=== PATIENT | male | born 1995 | race Caucasian/White ===

== ENCOUNTER 2024-09-09 20:57 | Emergency (ER) | payer SELFPAY ==
[2024-09-09 21:11] VITALS: BP 132/90; PULSE 97; RESP 17; TEMP 37.2; O2SAT 96; BMI 30.9
--- NOTE | 2024-09-09 21:45 | HMH.EDGENADL ---
Discharge Plan Disposition Patient Disposition: Home, Self-Care Prescriptions Prescriptions: No Action No Known Home Medications Activity Restrictions/Add. Instructions Additional Instructions/Restrictions: Please apply the topical eyedrops 1 to 2 drops per eye every 4-6 hours over the next week. As discussed you should have complete resolution of your symptoms in the next 24 to 48 hours. 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 Clinical Impressions Clinical Impression: Welders' keratitis of both eyes Print Language Print Language: Palauan Discharge ED Provider: Zan Molina General Adult HPI General Chief complaint: PAIN Stated complaint: Flash burn both eyes Time Seen by Provider: 09/09/24 21:22 Mode of Arrival: Ambulatory Source of Information: Patient Description of Symptoms (Recalled from ER Triage Doc. by RN): He states he has flashburn of his eyes from welding that occurred this morning at 1000. He states his vision is foggy. Rates pain 10/10. Denies flushing his eyes. 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 States that he has significant pain in bilateral eyes. Has had this in the past. But states this is worse than normal. Vision has been normal but may be a little bit blurry. Related Data Home Medications ?Medication ?Instructions ?Recorded ?Confirmed No Known Home Medications 09/09/24 09/09/24 Allergies Allergy/AdvReac Type Severity Reaction Status Date / Time No Known Allergies Allergy Verified 09/09/24 21:16 [facility] Disclaimer: The information contained in this section may have been updated after the patient was seen, as this information can be updated by other users. Social History Smoking Status: Never smoker alcohol intake: never current occupational status: other Travel in the last 8 weeks: None ROS Obtained: Yes All systems reviewed & no additional complaints except as documented Physical Exam General General appearance: alert and in no apparent distress Eye Eye exam: Present normal appearance, PERRL, EOMI, conjunctival redness and other (Visual acuity is normal, fluorescein exam with Whipple lamp is normal. Patient had complete resolution of symptoms after topical tetracaine was placed); Absent jaundice or discharge Respiratory Respiratory exam: Present normal lung sounds bilaterally Cardiovascular Cardiovascular exam: Present regular rate Neurological Exam Neurological exam: Present alert and oriented X3 Medical Decision Making Medical Records Screening: Per USPSTF and CDC recommendations, given the prevalence of disease in our region, it is our hospital?s policy to screen for HIV and viral Hepatitis for all patients aged 18 and over and those with ongoing risk factors. [place] Inquiry Pt receiving controlled substance: No Vital Signs: 09/09/24 21:11 Temperature 98.9 F Temperature Source Oral Pulse Rate [Right Brachial] 97 H Respiratory Rate 17 Blood Pressure [Right Arm] 132/90 Blood Pressure Mean [Right Arm] 104 Blood Pressure Source [Right Arm] Automatic Cuff Blood Pressure Position [Right Arm] Sitting 02 Sat by Pulse Oximetry 96 Oxygen Delivery Method Room Air Medical Decision Narrative: 28-year-old with objectively normal exam and had complete resolution with topical tetracaine consistent with bilateral Welders photokeratitis. This should be self resolving. Topical antibiotic ointment has been administered. Supportive and return precautions emphasized and patient was discharged in stable condition Critical Care Critical Care Time Critical Care Time: No
[2024-09-09 21:50] VITALS: BP 132/90; PULSE 91; RESP 18; TEMP 36.6; O2SAT 100
== END 2024-09-09 21:53 | disposition home or self-care (01) ==
PROVIDERS: Emergency Provider Student in an Organized Health Care Education/Training Program
DX: H16.133 Photokeratitis, bilateral (principal); H57.13 Ocular pain, bilateral; H53.8 Other visual disturbances; W89.8XXA Exposure to other man-made visible and ultraviolet light, initial encounter; Y93.89 Activity, other specified; Y92.69 Other specified industrial and construction area as the place of occurrence of the external cause
CPT/HCPCS: 99282

== ENCOUNTER 2024-10-16 20:59 | Emergency (ER) | payer SELFPAY ==
[2024-10-16 21:38] VITALS: BP 134/84; PULSE 86; RESP 16; TEMP 36.6; O2SAT 98; BMI 32.1
[2024-10-16 22:02] VITALS: BP 120/61; PULSE 84; O2SAT 91
[2024-10-16] MEDS: KETOROLAC 30MG/ML VIAL 30 MG IM (22:12)
[2024-10-16 22:49] VITALS: BP 108/73; PULSE 67; RESP 16; TEMP 36.6; O2SAT 97
--- NOTE | 2024-10-16 22:51 | ED_ITS ---
<Statement entered by Zan Molina MD - 10/16/24 23:24> I was consulted by the SHANE, and we discussed the complexity of the problems being addressed. I approved the treatment and management plan for this patient's care in the emergency department, thus performing a substantive portion of the medical decision making. Zan Molina MD, LISA, FACEP Discharge Plan Disposition Patient Disposition: Home, Self-Care Condition: Good Prescriptions Prescriptions: New methylprednisolone [Medrol (Jared)] 4 mg tablets,dose pack 4 mg PO DAILY Qty: 21 0RF methocarbamol 500 mg tablet 500 mg PO Q8H PRN (Reason: pain) Qty: 14 0RF Referrals Follow up/Referrals: Provider,Referral, [Primary Care Provider] - See instructions Activity Restrictions/Add. Instructions Additional Instructions/Restrictions: You were seen for back pain/ sciatica. Please follow up with a PCP this week for reevaluation. Clinical Impressions Clinical Impression: Sciatica Instructions Patient Instructions: DI for Low Back Pain, DI for Sciatica Print Language Print Language: Dutch Discharge ED Provider: Zan Molina General Adult HPI General Chief complaint: Back Pain/Injury Stated complaint: lower back pain, right hip pain Time Seen by Provider: 10/16/24 21:11 Mode of Arrival: Ambulatory Source of Information: Patient Description of Symptoms (Recalled from ER Triage Doc. by RN): Low back pain- has been ongoing for 2 weeks; worse today; states loss of bowel function yesterday- radiates to his right hip History of Present Illness HPI narrative: Patient presents with several weeks of back pain radiating into his right hip. His pain is worse with sitting and when he wakes up in the morning. Denies any injury. Denies any bowel or bladder incontinence or saddle anesthesias. Denies any fevers. He did have some nausea vomiting and diarrhea yesterday which he feels is unrelated. complaint: Back pain Onset (ago): week(s) Location: back Radiation: non-radiation Severity: mild Consistency: intermittent Relieving factors: none Exacerbating factors: rest Associated symptoms: negative fever/chills Related Data Previous Rx's ?Medication ?Instructions ?Recorded methocarbamol 500 mg tablet 500 mg PO Q8H PRN pain #14 tabs 10/16/24 methylprednisolone 4 mg tablets in 4 mg PO DAILY #21 tabs 10/16/24 a dose pack (Medrol (Jared)) Allergies Allergy/AdvReac Type Severity Reaction Status Date / Time No Known Allergies Allergy Verified 09/09/24 21:16 [facility] Disclaimer: The information contained in this section may have been updated after the patient was seen, as this information can be updated by other users. Social History (Updated 09/09/24 @ 21:46 by Zan Molina MD) Smoking Status: Never smoker alcohol intake: never current occupational status: other Travel in the last 8 weeks?: None Have you lived/traveled outside [place] in past 30 days?: No Contact w/someone who lives/traveled outside [place] past 30 days?: No Exposure to someone with infectious disease in past 14 days?: No Do you have a fever (greater than 100.4 F or 38 C)?: No Have you tested positive for COVID-19?: No Exposed to someone with COVID-19 in past 14 days?: No Do you have a sore throat?: No Do you have a cough?: No Do you have any weakness?: No Do you have any diarrhea?: No Are you experiencing any unusual bleeding?: No Do you have any muscle aches/pain?: No Do you have any abdominal pain?: No Are you experiencing loss of taste or smell?: No ROS Obtained: Yes Systems reviewed as appropriate & no additional complaints except as documented Physical Exam General General appearance: alert and in no apparent distress Head Head exam: atraumatic and normocephalic Eye Eye exam: Present normal appearance and EOMI Chest Chest inspection: Present symmetric chest wall rise Respiratory Respiratory exam: Present normal lung sounds bilaterally; Absent wheezes or stridor Cardiovascular Cardiovascular exam: Present regular rate and normal rhythm; Absent systolic murmur Extremities Exam Extremities exam: Present full ROM Back Exam Back exam: Present straight leg raise (R) (positive ); Absent full ROM (limited rotation and lateral flexion ), tenderness or paraspinal tenderness Neurological Exam Neurological exam: Present alert and oriented X3 Psychiatric Psychiatric exam: Present normal affect and normal mood Skin Skin exam: Present warm, dry and intact Medical Decision Making Medical Records Screening: Per USPSTF and CDC recommendations, given the prevalence of disease in our region, it is our hospital?s policy to screen for HIV and viral Hepatitis for all patients aged 18 and over and those with ongoing risk factors. [place] Inquiry Pt receiving controlled substance: No Vital Signs: 10/16/24 21:38 10/16/24 22:02 10/16/24 22:49 Temperature 97.9 F 97.9 F Temperature Source Oral Oral Pulse Rate 84 67 Pulse Rate [Right Radial] 86 Respiratory Rate 16 16 Blood Pressure 120/61 108/73 L Blood Pressure [Right Arm] 134/84 Blood Pressure Mean [Right Arm] 100 Blood Pressure Source Automatic Cuff Blood Pressure Source [Right Arm] Automatic Cuff Blood Pressure Position Supine Blood Pressure Position [Right Arm] Supine 02 Sat by Pulse Oximetry 98 91 L Oxygen Delivery Method Room Air Room Air Orders (Tests/Meds): ED MEDICATIONS Discontinued Medications Generic Name Dose Route Start Last Admin Trade Name Freq PRN Reason Stop Dose Admin Ketorolac Tromethamine 30 mg 10/16/24 21:46 10/16/24 22:12 Ketorolac 30mg/Ml Vial IM 10/16/24 21:47 30 mg ONCE ONE Administration Medical Decision Narrative: In summary patient is a 28-year-old male who presents the emergency department for evaluation of low back pain. Patient is hemodynamically stable upon arrival, afebrile. Spine nontender. Differential diagnosis includes sciatica, degenerative disc disease, lumbosacral. No injury, no point tenderness on exam. Given this patient given Toradol in the emergency department and discharged home with a prescription for Medrol and Robaxin. Follow-up with PCP and return here if symptoms do not improve. Critical Care Critical Care Time Critical Care Time: No
== END 2024-10-16 22:51 | disposition home or self-care (01) ==
PROVIDERS: Emergency Provider Student in an Organized Health Care Education/Training Program
DX: M54.31 Sciatica, right side (principal); M54.50 Low back pain, unspecified
CPT/HCPCS: 96372; 99283; J1885